=== PATIENT | female | born 1930 | race Caucasian/White ===

== ENCOUNTER 2018-03-10 22:40 | Inpatient (IN) ==
[2018-03-11] MEDS ORDERED: ONDANSETRON 4 MG/2 ML VIAL IV PRN (04:11)
[2018-03-11] MEDS ORDERED: ACETAMINOPHEN 325 MG TABLET PO PRN (04:11)
[2018-03-11] MEDS ORDERED: PREGABALIN 100 MG CAPSULE PO PRN (04:16)
[2018-03-11] MEDS ORDERED: DEXTROSE 50% 25 GM/50 ML VIAL IV PRN (05:08)
[2018-03-11] MEDS ORDERED: GLUCAGON 1 MG VIAL IM PRN (05:08)
[2018-03-11] MEDS: SODIUM CHLORIDE 0.9% 1,000 ML IV SCH ×3 (05:17→21:36)
[2018-03-11 05:30] LABS: Basophils # 0.1 10*3/uL (0.0-0.2); Basophils % 0.8 % (0.0-0.8); Eosinophils # 0.3 10*3/uL (0.0-0.87); Hematocrit 27.3 VOL% (35.7-47.0); Hemoglobin 9.2 GM/DL (12.0-16.0); Immature Granulocytes % 0.2 %; Immature Granulocytes Absolute 0.01 #; Lymphocytes # 1.9 10*3/uL (1.4-4.0); Lymphocytes % 29.3 % (21.3-54.2); Mean Corpuscular HGB Conc 33.7 GM/DL (32-36); Mean Corpuscular Hemoglobin 29 PG (27-34); Mean Corpuscular Volume 86.1 FL (87-102); Mean Platelet Volume 12.3 FL (9.6-12.0); Monocytes # 0.9 10*3/uL (0.11-0.8); Monocytes % 13.1 % (1.7-12.7); Neutrophils # 3.5 10*3/uL (1.4-7.4); Neutrophils % 52.6 % (38.7-73.9); Platelet Count 162 T/CUMM (130-400); Red Blood Count 3.17 MC/CUMM (3.8-5.5); Red Cell Distribution Width 13.3 % (9.3-17.3); White Blood Count 6.6 T/CUMM (4-12)
[2018-03-11 05:47] LABS: Albumin 2.7 G/DL (3.4-5.0); Bilirubin,Total 0.5 MG/DL (0.2-1.0); Calcium 9.6 MG/DL (8.5-10.1); Osmolality,Calculated 318.8 MOS/KG (273-304); Potassium 4.2 MMOL/L (3.5-5.1); Total Protein 6.8 G/DL (6.4-8.3)
[2018-03-11 05:55] LABS: Risk Ratio 3.58; Thyroid Stimulating Hormone 2.56 uIU/ml (0.358-3.74); VLDL CHOLESTEROL 16.2 MG/DL
[2018-03-11 06:54] LABS: Apearance,Urine CLEAR (Clear); Bilirubin,Urine Negative (Negative); Blood, Urine Negative (Negative); Glucose,Urine (UA) Negative (Negative); Ketones,Urine Negative (Negative); Nitrite,Urine Negative (Negative); Protein,Urine Negative; Urine Color Straw (Yellow); Urine Specific Gravity 1.006 (1.001-1.035); Urine Urobilinogen < 2.0 EU/DL (0.2-1.0); WBC,Urine <1 /HPF (0-6)
[2018-03-11] MEDS: INSULIN REGULAR 100 UNIT/ML SUBCUT SCH ×4 (08:27→21:36)
[2018-03-11] MEDS: CARVEDILOL 12.5 MG TABLET PO SCH ×2 (09:31→17:55)
[2018-03-11] MEDS: CYPROHEPTADINE 4 MG TABLET PO SCH ×2 (11:01→21:36)
[2018-03-12 07:17] LABS: Basophils % 0.5 % (0.0-0.8); Eosinophils # 0.2 10*3/uL (0.0-0.87); Eosinophils % 2.1 % (0.00-10.9); Hematocrit 25.4 VOL% (35.7-47.0); Hemoglobin 8.5 GM/DL (12.0-16.0); Immature Granulocytes % 0.4 %; Immature Granulocytes Absolute 0.03 #; Lymphocytes # 1.7 10*3/uL (1.4-4.0); Lymphocytes % 19.6 % (21.3-54.2); Mean Corpuscular HGB Conc 33.5 GM/DL (32-36); Mean Corpuscular Hemoglobin 29 PG (27-34); Mean Corpuscular Volume 85.5 FL (87-102); Mean Platelet Volume 12.2 FL (9.6-12.0); Monocytes # 0.8 10*3/uL (0.11-0.8); Monocytes % 8.8 % (1.7-12.7); NRBC # 0.02 10*3/uL; Neutrophils # 5.9 10*3/uL (1.4-7.4); Neutrophils % 68.6 % (38.7-73.9); Platelet Count 150 T/CUMM (130-400); Red Blood Count 2.97 MC/CUMM (3.8-5.5); Red Cell Distribution Width 13.9 % (9.3-17.3); White Blood Count 8.6 T/CUMM (4-12)
[2018-03-12 07:35] LABS: Calcium 9.1 MG/DL (8.5-10.1); Osmolality,Calculated 317.7 MOS/KG (273-304)
[2018-03-12] MEDS: INSULIN REGULAR 100 UNIT/ML SUBCUT SCH ×4 (08:39→22:13)
[2018-03-12] MEDS: CYPROHEPTADINE 4 MG TABLET PO SCH ×2 (09:31→21:24)
[2018-03-12] MEDS: CARVEDILOL 12.5 MG TABLET PO SCH ×3 (09:32→23:06)
[2018-03-12] MEDS: SODIUM CHLORIDE 0.9% 1,000 ML IV SCH (09:34)
[2018-03-12] MEDS: SODIUM CHLORIDE 0.45% 1,000 ML IV SCH ×2 (12:20→21:24)
[2018-03-12] MEDS: ZINC OXIDE PASTE 113 GM TUBE TOP SCH ×3 (15:00→21:25)
[2018-03-13] MEDS: ACETAMINOPHEN 325 MG TABLET PO PRN ×2 (01:50→15:07)
[2018-03-13] MEDS ORDERED: FUROSEMIDE 40 MG/4 ML VIAL IV ONE (02:30)
[2018-03-13] MEDS: INSULIN REGULAR 100 UNIT/ML SUBCUT SCH ×4 (08:27→23:17)
[2018-03-13] MEDS: ZINC OXIDE PASTE 113 GM TUBE TOP SCH ×2 (09:28→23:18)
[2018-03-13] MEDS: CARVEDILOL 12.5 MG TABLET PO SCH ×2 (09:28→18:49)
[2018-03-13] MEDS: CYPROHEPTADINE 4 MG TABLET PO SCH (09:28)
[2018-03-13] MEDS: cefTRIAXone 1,000 MG in SYRINGE 1 EACH IV SCH (15:07)
[2018-03-13 15:40] LABS: Apearance,Urine Slightly Hazy (Clear); Bacteria,Urine Occasional /HPF (Few); Bilirubin,Urine Negative (Negative); Blood, Urine Negative (Negative); Glucose,Urine (UA) Negative (Negative); Ketones,Urine Negative (Negative); Mucus,Urine Occasional /LPF (Occasional); Nitrite,Urine Negative (Negative); Protein,Urine Negative; RBC,Urine 2 /HPF (0-4); Squamous Epithelial Cell,Urine Occasional /HPF (0-10); Urine Color Straw (Yellow); Urine Specific Gravity 1.008 (1.001-1.035); Urine Urobilinogen < 2.0 EU/DL (0.2-1.0); WBC,Urine 33 /HPF (0-6)
[2018-03-14 05:57] LABS: Basophils # 0.1 10*3/uL (0.0-0.2); Basophils % 0.2 % (0.0-0.8); Hemoglobin 8.7 GM/DL (12.0-16.0); Immature Granulocytes % 4.9 %; Immature Granulocytes Absolute 1.29 #; Lymphocytes # 1.5 10*3/uL (1.4-4.0); Lymphocytes % 5.8 % (21.3-54.2); Mean Corpuscular HGB Conc 33.5 GM/DL (32-36); Mean Corpuscular Hemoglobin 30 PG (27-34); Mean Corpuscular Volume 88.1 FL (87-102); Mean Platelet Volume 12.3 FL (9.6-12.0); Monocytes # 2.2 10*3/uL (0.11-0.8); Monocytes % 8.3 % (1.7-12.7); Neutrophils # 21.2 10*3/uL (1.4-7.4); Neutrophils % 80.8 % (38.7-73.9); Platelet Count 119 T/CUMM (130-400); Red Blood Count 2.95 MC/CUMM (3.8-5.5); Red Cell Distribution Width 13.8 % (9.3-17.3)
[2018-03-14 05:59] LABS: White Blood Count 26.3 T/CUMM (4-12)
[2018-03-14 06:21] LABS: Band Neutrophils 2 % (0-10); Eosinophils 1 % (0-10); Hypochromasia 1+; Lymphocytes 3 % (20-55); Microcytosis 1+; Platelet Estimate Adequate; Segmented Neutrophils 88 % (50-85); Total Cells Counted 100
[2018-03-14 06:35] LABS: Albumin 2.3 G/DL (3.4-5.0); Bilirubin,Total 1.1 MG/DL (0.2-1.0); Calcium 8.9 MG/DL (8.5-10.1); Osmolality,Calculated 310.6 MOS/KG (273-304); Potassium 3.1 MMOL/L (3.5-5.1)
[2018-03-14] MEDS: INSULIN REGULAR 100 UNIT/ML SUBCUT SCH ×4 (07:54→22:15)
[2018-03-14] MEDS: CARVEDILOL 12.5 MG TABLET PO SCH ×2 (08:30→17:07)
[2018-03-14] MEDS ORDERED: CYPROHEPTADINE 4 MG TABLET PO SCH (09:00)
[2018-03-14] MEDS: ZINC OXIDE PASTE 113 GM TUBE TOP SCH (10:07)
[2018-03-14] MEDS: PREGABALIN 50 MG CAPSULE PO SCH (10:09)
[2018-03-14] MEDS: SODIUM CHLORIDE 0.45% 1,000 ML IV SCH ×2 (12:20→19:05)
[2018-03-14] MEDS: POTASSIUM CHLORIDE 20 MEQ TABLET PO PRN ×3 (12:24→17:15)
[2018-03-14] MEDS: cefTRIAXone 1,000 MG in SYRINGE 1 EACH IV SCH (14:29)
[2018-03-14] MEDS: FLUCONAZOLE 100 MG TABLET PO SCH (17:15)
[2018-03-15] MEDS: ZINC OXIDE PASTE 113 GM TUBE TOP SCH ×3 (02:20→21:01)
[2018-03-15] MEDS: SODIUM CHLORIDE 0.45% 1,000 ML IV SCH ×3 (07:09→16:29)
[2018-03-15 07:20] LABS: Calcium 8.7 MG/DL (8.5-10.1); Potassium 3.6 MMOL/L (3.5-5.1)
[2018-03-15 07:23] LABS: Basophils # 0.1 10*3/uL (0.0-0.2); Basophils % 0.2 % (0.0-0.8); Eosinophils # 0.4 10*3/uL (0.0-0.87); Eosinophils % 1.9 % (0.00-10.9); Immature Granulocytes % 1.6 %; Immature Granulocytes Absolute 0.32 #; Lymphocytes # 1.8 10*3/uL (1.4-4.0); Mean Corpuscular HGB Conc 33.3 GM/DL (32-36); Mean Corpuscular Hemoglobin 29 PG (27-34); Mean Corpuscular Volume 87.6 FL (87-102); Mean Platelet Volume 12.9 FL (9.6-12.0); Monocytes # 1.8 10*3/uL (0.11-0.8); Monocytes % 8.7 % (1.7-12.7); Neutrophils # 15.9 10*3/uL (1.4-7.4); Neutrophils % 78.6 % (38.7-73.9); Platelet Count 121 T/CUMM (130-400); Red Blood Count 2.74 MC/CUMM (3.8-5.5); Red Cell Distribution Width 14.3 % (9.3-17.3); White Blood Count 20.2 T/CUMM (4-12)
[2018-03-15 07:56] LABS: Band Neutrophils 1 % (0-10); Eosinophils 4 % (0-10); Hypochromasia 1+; Lymphocytes 10 % (20-55); Segmented Neutrophils 81 % (50-85); Total Cells Counted 100
[2018-03-15 07:57] LABS: Microcytosis 1+; Platelet Estimate Adequate
[2018-03-15] MEDS: INSULIN REGULAR 100 UNIT/ML SUBCUT SCH ×4 (08:18→21:02)
[2018-03-15] MEDS: CARVEDILOL 12.5 MG TABLET PO SCH ×2 (08:19→16:29)
[2018-03-15] MEDS: FLUCONAZOLE 100 MG TABLET PO SCH (10:23)
[2018-03-15] MEDS: PREGABALIN 50 MG CAPSULE PO SCH (11:23)
[2018-03-15] MEDS: cefTRIAXone 1,000 MG in SYRINGE 1 EACH IV SCH (13:49)
[2018-03-16 08:00] LABS: Calcium 9.1 MG/DL (8.5-10.1); Osmolality,Calculated 296.1 MOS/KG (273-304); Potassium 3.6 MMOL/L (3.5-5.1)
[2018-03-16 08:05] LABS: Basophils % 0.3 % (0.0-0.8); Eosinophils # 0.4 10*3/uL (0.0-0.87); Eosinophils % 4.2 % (0.00-10.9); Hematocrit 23.1 VOL% (35.7-47.0); Immature Granulocytes % 0.4 %; Immature Granulocytes Absolute 0.04 #; Lymphocytes # 1.6 10*3/uL (1.4-4.0); Mean Corpuscular HGB Conc 31.6 GM/DL (32-36); Mean Corpuscular Hemoglobin 29 PG (27-34); Mean Corpuscular Volume 91.7 FL (87-102); Mean Platelet Volume 11.8 FL (9.6-12.0); Monocytes # 1.2 10*3/uL (0.11-0.8); Monocytes % 11.8 % (1.7-12.7); Neutrophils # 6.6 10*3/uL (1.4-7.4); Neutrophils % 67.3 % (38.7-73.9); Platelet Count 117 T/CUMM (130-400); Red Blood Count 2.52 MC/CUMM (3.8-5.5)
[2018-03-16 08:07] LABS: Hemoglobin 7.3 GM/DL (12.0-16.0); White Blood Count 9.8 T/CUMM (4-12)
[2018-03-16] MEDS: SODIUM CHLORIDE 0.45% 1,000 ML IV SCH ×2 (09:33→15:34)
[2018-03-16] MEDS: INSULIN REGULAR 100 UNIT/ML SUBCUT SCH ×3 (09:33→18:10)
[2018-03-16] MEDS: FLUCONAZOLE 100 MG TABLET PO SCH (09:34)
[2018-03-16] MEDS: CARVEDILOL 12.5 MG TABLET PO SCH ×2 (09:34→18:37)
[2018-03-16] MEDS: ZINC OXIDE PASTE 113 GM TUBE TOP SCH ×2 (11:18→22:30)
[2018-03-16] MEDS: cefTRIAXone 1,000 MG in SYRINGE 1 EACH IV SCH (14:30)
[2018-03-16] MEDS ORDERED: SODIUM CHLORIDE 0.9% 1,000 ML IV PRN (14:57)
[2018-03-17] MEDS: INSULIN REGULAR 100 UNIT/ML SUBCUT SCH ×5 (02:16→20:20)
[2018-03-17 07:15] LABS: Basophils % 0.5 % (0.0-0.8); Eosinophils # 0.3 10*3/uL (0.0-0.87); Eosinophils % 3.3 % (0.00-10.9); Hematocrit 29.5 VOL% (35.7-47.0); Hemoglobin 9.7 GM/DL (12.0-16.0); Immature Granulocytes % 0.5 %; Immature Granulocytes Absolute 0.04 #; Lymphocytes # 1.6 10*3/uL (1.4-4.0); Lymphocytes % 18.8 % (21.3-54.2); Mean Corpuscular HGB Conc 32.9 GM/DL (32-36); Mean Corpuscular Hemoglobin 29 PG (27-34); Mean Corpuscular Volume 89.4 FL (87-102); Mean Platelet Volume 12.5 FL (9.6-12.0); Monocytes # 1.1 10*3/uL (0.11-0.8); Monocytes % 13.1 % (1.7-12.7); Neutrophils # 5.5 10*3/uL (1.4-7.4); Neutrophils % 63.8 % (38.7-73.9); Platelet Count 112 T/CUMM (130-400); Red Cell Distribution Width 13.8 % (9.3-17.3); White Blood Count 8.7 T/CUMM (4-12)
[2018-03-17] MEDS: SODIUM CHLORIDE 0.45% 1,000 ML IV SCH (09:39)
[2018-03-17] MEDS: CARVEDILOL 12.5 MG TABLET PO SCH (09:39)
[2018-03-17] MEDS: FLUCONAZOLE 100 MG TABLET PO SCH (09:39)
[2018-03-17] MEDS: ZINC OXIDE PASTE 113 GM TUBE TOP SCH ×2 (10:23→20:20)
[2018-03-17] MEDS: cefTRIAXone 1,000 MG in SYRINGE 1 EACH IV SCH (15:26)
[2018-03-17] MEDS: CARVEDILOL 6.25 MG TABLET PO SCH (17:16)
[2018-03-18 07:00] LABS: Basophils % 0.3 % (0.0-0.8); Eosinophils # 0.3 10*3/uL (0.0-0.87); Eosinophils % 3.2 % (0.00-10.9); Hematocrit 33.5 VOL% (35.7-47.0); Immature Granulocytes % 0.6 %; Immature Granulocytes Absolute 0.06 #; Lymphocytes # 1.3 10*3/uL (1.4-4.0); Lymphocytes % 14.1 % (21.3-54.2); Mean Corpuscular HGB Conc 32.8 GM/DL (32-36); Mean Corpuscular Hemoglobin 29 PG (27-34); Mean Corpuscular Volume 89.6 FL (87-102); Mean Platelet Volume 11.7 FL (9.6-12.0); Monocytes # 1.6 10*3/uL (0.11-0.8); Monocytes % 17.1 % (1.7-12.7); Neutrophils % 64.7 % (38.7-73.9); Platelet Count 137 T/CUMM (130-400); Red Blood Count 3.74 MC/CUMM (3.8-5.5); Red Cell Distribution Width 13.9 % (9.3-17.3); White Blood Count 9.3 T/CUMM (4-12)
[2018-03-18 07:17] LABS: Calcium 9.9 MG/DL (8.5-10.1); Osmolality,Calculated 293.1 MOS/KG (273-304); Potassium 4.1 MMOL/L (3.5-5.1)
[2018-03-18] MEDS ORDERED: FUROSEMIDE 40 MG/4 ML VIAL IV ONE (07:33)
[2018-03-18 07:35] LABS: Band Neutrophils 5 % (0-10); Eosinophils 3 % (0-10); Lymphocytes 24 % (20-55); Platelet Estimate Adequate; Total Cells Counted 100
[2018-03-18 07:36] LABS: Anisocytosis Slight; Segmented Neutrophils 53 % (50-85)
[2018-03-18 09:15] LABS: ABG Base Excess -4.6 MMOL/L (-2.5-2.5); ABG HCO3 20.6 MMOL/L (20-26); ABG Oxygen Saturation 93.9 % (95-100); ABG PCO2 31.2 MM HG (35-48); ABG PO2 69.6 MM HG (80-95); ABG TCO2 17.3 MMOL/L (23-27)
[2018-03-18] MEDS: INSULIN REGULAR 100 UNIT/ML SUBCUT SCH ×4 (09:15→22:48)
[2018-03-18] MEDS: CARVEDILOL 6.25 MG TABLET PO SCH ×2 (09:15→17:44)
[2018-03-18] MEDS: ZINC OXIDE PASTE 113 GM TUBE TOP SCH ×2 (09:16→22:48)
[2018-03-18] MEDS: cefTRIAXone 1,000 MG in SYRINGE 1 EACH IV SCH (14:51)
[2018-03-18] MEDS: FUROSEMIDE 40 MG/4 ML VIAL IV SCH (17:41)
[2018-03-19 06:49] LABS: Basophils % 0.5 % (0.0-0.8); Eosinophils # 0.3 10*3/uL (0.0-0.87); Hematocrit 31.4 VOL% (35.7-47.0); Hemoglobin 10.5 GM/DL (12.0-16.0); Immature Granulocytes % 0.5 %; Immature Granulocytes Absolute 0.04 #; Lymphocytes # 1.7 10*3/uL (1.4-4.0); Lymphocytes % 21.4 % (21.3-54.2); Mean Corpuscular HGB Conc 33.4 GM/DL (32-36); Mean Corpuscular Hemoglobin 29 PG (27-34); Mean Corpuscular Volume 87.2 FL (87-102); Mean Platelet Volume 11.5 FL (9.6-12.0); Monocytes # 1.5 10*3/uL (0.11-0.8); Monocytes % 18.6 % (1.7-12.7); Neutrophils # 4.4 10*3/uL (1.4-7.4); Platelet Count 180 T/CUMM (130-400); Red Cell Distribution Width 13.8 % (9.3-17.3)
[2018-03-19 07:12] LABS: Calcium 9.4 MG/DL (8.5-10.1); Osmolality,Calculated 296.8 MOS/KG (273-304); Potassium 3.6 MMOL/L (3.5-5.1)
[2018-03-19 07:20] LABS: Band Neutrophils 2 % (0-10); Eosinophils 6 % (0-10); Lymphocytes 26 % (20-55); Platelet Estimate Normal; Segmented Neutrophils 58 % (50-85); Total Cells Counted 100
[2018-03-19] MEDS: INSULIN REGULAR 100 UNIT/ML SUBCUT SCH ×4 (07:43→21:33)
[2018-03-19] MEDS: FUROSEMIDE 40 MG/4 ML VIAL IV SCH ×2 (09:59→17:47)
[2018-03-19] MEDS: POTASSIUM CHLORIDE 20 MEQ TABLET PO PRN ×2 (10:02→12:09)
[2018-03-19] MEDS: ZINC OXIDE PASTE 113 GM TUBE TOP SCH ×2 (11:22→21:31)
[2018-03-19] MEDS: CARVEDILOL 6.25 MG TABLET PO SCH ×2 (11:22→17:46)
[2018-03-19] MEDS: CYANOCOBALAMIN 1000 MCG/1 ML VIAL IM SCH (11:57)
[2018-03-19] MEDS: cefTRIAXone 1,000 MG in SYRINGE 1 EACH IV SCH (15:13)
[2018-03-19] MEDS: SERTRALINE 25 MG TABLET PO SCH (21:31)
[2018-03-20 06:09] LABS: Basophils % 0.4 % (0.0-0.8); Eosinophils # 0.4 10*3/uL (0.0-0.87); Eosinophils % 3.9 % (0.00-10.9); Hematocrit 34.9 VOL% (35.7-47.0); Hemoglobin 11.7 GM/DL (12.0-16.0); Immature Granulocytes % 0.7 %; Immature Granulocytes Absolute 0.07 #; Lymphocytes # 1.9 10*3/uL (1.4-4.0); Lymphocytes % 17.8 % (21.3-54.2); Mean Corpuscular HGB Conc 33.5 GM/DL (32-36); Mean Corpuscular Hemoglobin 29 PG (27-34); Mean Corpuscular Volume 87.5 FL (87-102); Mean Platelet Volume 10.9 FL (9.6-12.0); Monocytes # 1.5 10*3/uL (0.11-0.8); Neutrophils # 6.8 10*3/uL (1.4-7.4); Neutrophils % 63.2 % (38.7-73.9); Platelet Count 225 T/CUMM (130-400); Red Blood Count 3.99 MC/CUMM (3.8-5.5); Red Cell Distribution Width 13.7 % (9.3-17.3); White Blood Count 10.8 T/CUMM (4-12)
[2018-03-20 06:33] LABS: Calcium 9.1 MG/DL (8.5-10.1); Osmolality,Calculated 292.3 MOS/KG (273-304); Potassium 3.7 MMOL/L (3.5-5.1)
[2018-03-20] MEDS: POTASSIUM CHLORIDE 20 MEQ TABLET PO PRN (08:39)
[2018-03-20] MEDS: CARVEDILOL 6.25 MG TABLET PO SCH ×2 (08:39→16:07)
[2018-03-20] MEDS: FUROSEMIDE 40 MG/4 ML VIAL IV SCH (08:40)
[2018-03-20] MEDS: CYANOCOBALAMIN 1000 MCG/1 ML VIAL IM SCH (08:40)
[2018-03-20] MEDS: INSULIN REGULAR 100 UNIT/ML SUBCUT SCH ×4 (10:10→21:36)
[2018-03-20] MEDS: ZINC OXIDE PASTE 113 GM TUBE TOP SCH ×2 (12:48→21:41)
[2018-03-20] MEDS: cefTRIAXone 1,000 MG in SYRINGE 1 EACH IV SCH (14:45)
[2018-03-20] MEDS: FUROSEMIDE 20 MG TABLET PO SCH (16:07)
[2018-03-20] MEDS: SERTRALINE 25 MG TABLET PO SCH (21:36)
[2018-03-21] MEDS: INSULIN REGULAR 100 UNIT/ML SUBCUT SCH ×2 (08:00→12:28)
[2018-03-21] MEDS ORDERED: FUROSEMIDE 20 MG TABLET PO SCH (09:00)
[2018-03-21] MEDS: CYANOCOBALAMIN 1000 MCG/1 ML VIAL IM SCH (10:09)
[2018-03-21] MEDS: CARVEDILOL 6.25 MG TABLET PO SCH (10:09)
[2018-03-21] MEDS: FUROSEMIDE 20 MG TABLET PO SCH (10:09)
[2018-03-21] MEDS: ZINC OXIDE PASTE 113 GM TUBE TOP SCH (10:10)
[2018-03-21 12:25] VITALS: BP 142/59
== END 2018-03-21 17:50 | disposition swing bed (61) | DRG 682 ==
LOC: SUATTDRO 03-11 00:04 → N.5E 03-11 00:04
PROVIDERS: ADMIT Internal Medicine; ATTEND Internal Medicine

== ENCOUNTER 2018-04-05 14:53 | Inpatient (IN) ==
[2018-04-05] MEDS ORDERED: GLUCAGON 1 MG VIAL IM PRN (19:37)
[2018-04-05] MEDS ORDERED: DOCUSATE SODIUM 100 MG/10 ML UDCUP PO PRN (19:37)
[2018-04-05] MEDS ORDERED: ONDANSETRON 4 MG/2 ML VIAL IV PRN (19:37)
[2018-04-05] MEDS ORDERED: guaiFENesin/DM ER 600-30 MG TABLET PO PRN (19:37)
[2018-04-05] MEDS ORDERED: DEXTROSE 50% 25 GM/50 ML VIAL IV PRN (19:37)
[2018-04-05] MEDS ORDERED: INSULIN REGULAR 100 UNIT/ML SUBCUT SCH (21:00)
[2018-04-05] MEDS ORDERED: CYPROHEPTADINE 4 MG TABLET PO SCH (21:00)
[2018-04-05] MEDS: SODIUM CHLORIDE 0.9% 1,000 ML IV SCH (21:45)
[2018-04-05] MEDS: NYSTATIN OINT 15 GM TUBE TOP SCH (21:47)
[2018-04-05] MEDS: CARBIDOPA/LEVODOPA 10-100 MG TABLET PO SCH (21:47)
[2018-04-05] MEDS: cefTRIAXone 1,000 MG in SYRINGE 1 EACH IV SCH (21:47)
[2018-04-06] MEDS: DESITIN 4OZ/NYSTATIN 15 GRAM MIXTURE PASTE TOP SCH ×3 (02:09→21:51)
[2018-04-06 03:49] LABS: Apearance,Urine CLEAR (Clear); Bilirubin,Urine Negative (Negative); Blood, Urine Negative (Negative); Glucose,Urine (UA) Negative (Negative); Hyaline Casts,Urine 1 /LPF (0-3); Ketones,Urine Negative (Negative); Mucus,Urine Occasional /LPF (Occasional); Nitrite,Urine Negative (Negative); Protein,Urine Negative; Urine Color Yellow (Yellow); Urine Specific Gravity 1.009 (1.001-1.035); Urine Urobilinogen < 2.0 EU/DL (0.2-1.0)
[2018-04-06 05:44] LABS: Basophils % 0.8 % (0.0-0.8); Eosinophils # 0.4 10*3/uL (0.0-0.87); Eosinophils % 10.5 % (0.00-10.9); Hematocrit 26.5 VOL% (35.7-47.0); Hemoglobin 8.2 GM/DL (12.0-16.0); Lymphocytes # 1.6 10*3/uL (1.4-4.0); Lymphocytes % 43.2 % (21.3-54.2); Mean Corpuscular HGB Conc 30.9 GM/DL (32-36); Mean Corpuscular Hemoglobin 28 PG (27-34); Mean Corpuscular Volume 91.7 FL (87-102); Monocytes # 0.8 10*3/uL (0.11-0.8); Monocytes % 20.8 % (1.7-12.7); Neutrophils # 0.9 10*3/uL (1.4-7.4); Neutrophils % 24.7 % (38.7-73.9); Platelet Count 124 T/CUMM (130-400); Red Blood Count 2.89 MC/CUMM (3.8-5.5); Red Cell Distribution Width 14.5 % (9.3-17.3); White Blood Count 3.7 T/CUMM (4-12)
[2018-04-06 05:59] LABS: Calcium 8.7 MG/DL (8.5-10.1); Potassium 4.6 MMOL/L (3.5-5.1)
[2018-04-06 06:13] LABS: Eosinophils 19 % (0-10); Hypochromasia 1+; Lymphocytes 34 % (20-55); Ovalocytes Slight; Platelet Estimate Normal; Segmented Neutrophils 30 % (50-85); Total Cells Counted 100
[2018-04-06] MEDS ORDERED: metFORMIN 500 MG TABLET PO SCH (08:00)
[2018-04-06] MEDS: FLUCONAZOLE 100 MG TABLET PO SCH (09:04)
[2018-04-06] MEDS: PANTOPRAZOLE 40 MG TABLET PO SCH (09:04)
[2018-04-06] MEDS: CARBIDOPA/LEVODOPA 10-100 MG TABLET PO SCH ×2 (09:05→21:50)
[2018-04-06] MEDS: DOCUSATE SODIUM 100 MG/10 ML UDCUP PO SCH (09:05)
[2018-04-06] MEDS: SODIUM CHLORIDE 0.9% 1,000 ML IV SCH (09:47)
[2018-04-06] MEDS: NYSTATIN OINT 15 GM TUBE TOP SCH ×2 (17:06→21:52)
[2018-04-06] MEDS: cefTRIAXone 1,000 MG in SYRINGE 1 EACH IV SCH (21:43)
[2018-04-06] MEDS: SERTRALINE 25 MG TABLET PO SCH (21:50)
[2018-04-07] MEDS: SODIUM CHLORIDE 0.9% 1,000 ML IV SCH (04:00)
[2018-04-07] MEDS: FLUCONAZOLE 100 MG TABLET PO SCH (09:41)
[2018-04-07] MEDS: CARBIDOPA/LEVODOPA 10-100 MG TABLET PO SCH ×2 (09:42→22:25)
[2018-04-07] MEDS: PANTOPRAZOLE 40 MG TABLET PO SCH (09:42)
[2018-04-07] MEDS: DESITIN 4OZ/NYSTATIN 15 GRAM MIXTURE PASTE TOP SCH ×2 (09:42→22:40)
[2018-04-07] MEDS: DOCUSATE SODIUM 100 MG/10 ML UDCUP PO SCH (09:42)
[2018-04-07] MEDS: NYSTATIN OINT 15 GM TUBE TOP SCH ×2 (09:42→22:33)
[2018-04-07] MEDS ORDERED: BISACODYL 10 MG SUPP RECTAL ONE (12:36)
[2018-04-07] MEDS: SERTRALINE 25 MG TABLET PO SCH (22:25)
[2018-04-07] MEDS: cefTRIAXone 1,000 MG in SYRINGE 1 EACH IV SCH (22:28)
[2018-04-08 05:54] LABS: Basophils % 0.9 % (0.0-0.8); Eosinophils # 0.4 10*3/uL (0.0-0.87); Hematocrit 29.7 VOL% (35.7-47.0); Hemoglobin 9.3 GM/DL (12.0-16.0); Immature Granulocytes % 0.2 %; Immature Granulocytes Absolute 0.01 #; Lymphocytes # 1.9 10*3/uL (1.4-4.0); Lymphocytes % 41.7 % (21.3-54.2); Mean Corpuscular HGB Conc 31.3 GM/DL (32-36); Mean Corpuscular Hemoglobin 29 PG (27-34); Mean Corpuscular Volume 91.4 FL (87-102); Mean Platelet Volume 11.7 FL (9.6-12.0); Monocytes # 0.7 10*3/uL (0.11-0.8); Monocytes % 16.2 % (1.7-12.7); Neutrophils # 1.4 10*3/uL (1.4-7.4); Platelet Count 119 T/CUMM (130-400); Red Blood Count 3.25 MC/CUMM (3.8-5.5); Red Cell Distribution Width 14.6 % (9.3-17.3); White Blood Count 4.4 T/CUMM (4-12)
[2018-04-08 06:19] LABS: Calcium 9.6 MG/DL (8.5-10.1); Osmolality,Calculated 309.3 MOS/KG (273-304); Potassium 4.4 MMOL/L (3.5-5.1)
[2018-04-08] MEDS: FLUCONAZOLE 100 MG TABLET PO SCH (09:30)
[2018-04-08] MEDS: DOCUSATE SODIUM 100 MG/10 ML UDCUP PO SCH (09:31)
[2018-04-08] MEDS: PANTOPRAZOLE 40 MG TABLET PO SCH (09:31)
[2018-04-08] MEDS: CARBIDOPA/LEVODOPA 10-100 MG TABLET PO SCH ×2 (09:31→21:20)
[2018-04-08 09:40] LABS: Eosinophils 6 % (0-10); Lymphocytes 34 % (20-55); Segmented Neutrophils 48 % (50-85); Total Cells Counted 100
[2018-04-08] MEDS: NYSTATIN OINT 15 GM TUBE TOP SCH ×2 (09:41→21:22)
[2018-04-08] MEDS: DESITIN 4OZ/NYSTATIN 15 GRAM MIXTURE PASTE TOP SCH ×2 (09:42→21:22)
[2018-04-08] MEDS: amLODIPine 2.5 MG TABLET PO SCH (13:31)
[2018-04-08] MEDS: SODIUM CHLORIDE 0.9% 1,000 ML IV SCH ×2 (21:17→21:18)
[2018-04-08] MEDS: SERTRALINE 25 MG TABLET PO SCH (21:20)
[2018-04-08] MEDS: cefTRIAXone 1,000 MG in SYRINGE 1 EACH IV SCH (21:20)
[2018-04-09] MEDS: SODIUM CHLORIDE 0.9% 1,000 ML IV SCH (06:47)
[2018-04-09] MEDS: FLUCONAZOLE 100 MG TABLET PO SCH (09:22)
[2018-04-09] MEDS: DOCUSATE SODIUM 100 MG/10 ML UDCUP PO SCH (09:22)
[2018-04-09] MEDS: CARBIDOPA/LEVODOPA 10-100 MG TABLET PO SCH (09:22)
[2018-04-09] MEDS: NYSTATIN OINT 15 GM TUBE TOP SCH (09:23)
[2018-04-09] MEDS: PANTOPRAZOLE 40 MG TABLET PO SCH (09:23)
[2018-04-09] MEDS: DESITIN 4OZ/NYSTATIN 15 GRAM MIXTURE PASTE TOP SCH (09:23)
[2018-04-09] MEDS: amLODIPine 2.5 MG TABLET PO SCH (09:23)
[2018-04-09 13:44] VITALS: BP 153/70
== END 2018-04-09 16:06 | disposition swing bed (61) | DRG 682 ==
LOC: N.5E → SUATTDRO 17:14
PROVIDERS: ADMIT Internal Medicine; ATTEND Internal Medicine